=== PATIENT | male | born 1980 | race American Indian/Alaskan Native ===

== ENCOUNTER 2017-12-20 08:01 | Observation (INO) | payer OTHER ==
[2017-12-20] MEDS ORDERED: Sodium Chloride 0.9% 1,000 ML IV ONE (08:23)
[2017-12-20 08:58] LABS: SQUAMOUS EPITHIAL < 1 /hpf (0-5); URINE BILIRUBIN NEGATIVE (NEGATIVE); URINE BLOOD 1+ (NEGATIVE); URINE CLARITY Clear (Clear); URINE COLOR Yellow (YELLOW); URINE GLUCOSE (UA) 1+ mg/dL (Normal); URINE LEUKOCYTE ESTERASE 3+ Leu/uL (Negative); URINE PROTEIN 2+ mg/dL (NEGATIVE)
[2017-12-20 09:00] LABS: BASO # 0.1 K/uL (0.0-0.2); BASO % 1.3 % (0.0-2.0); EOS % 0.5 % (0.0-4.0); LYMPH # 0.4 K/uL (1.0-4.3); LYMPH % 5.3 % (20.0-40.0); MEAN CELL VOLUME 99.2 fL (80.0-94.0); MEAN CORPUSCULAR HEMOGLOBIN 34.3 pg (27.0-31.0); MEAN CORPUSCULAR HGB CONC 34.5 g/dL (33.0-37.0); MONO # 0.8 K/uL (0.0-0.8); MONO % 9.7 % (0.0-10.0); NEUT # 6.4 K/uL (1.8-7.0); NEUT % 83.2 % (50.0-75.0); PLATELET COUNT 222 K/uL (130-400); RBC 3.52 Mil/uL (4.40-5.90); RED CELL DISTRIBUTION WIDTH 13.2 % (11.5-14.5); WHITE BLOOD COUNT 7.7 K/uL (4.8-10.8)
[2017-12-20 09:10] LABS: ALB/GLOB RATIO 1.4 (1.0-2.1); ALBUMIN 4.9 g/dL (3.5-5.0); ALT/SGPT 80 U/L (21-72); AST/SGOT 221 U/L (17-59); BLOOD UREA NITROGEN 11 mg/dL (9-20); CALCIUM 9.6 mg/dl (8.6-10.4); GFR NON-AFRICAN AMERICAN > 60
[2017-12-20 09:15] LABS: BARBITURATES, UR NEGATIVE (NEGATIVE); BENZODIAZEPINES, UR NEGATIVE (NEGATIVE); PHENCYCLIDINE, UR NEGATIVE (NEGATIVE)
[2017-12-20 09:27] LABS: BASOPHIL 1 % (0-2); LYMPHOCYTE 5 % (20-40); MONOCYTE 6 % (0-10); NEUTROPHIL 88 % (50-75); PLATELET ESTIMATE NORMAL (NORMAL); TOTAL CELLS COUNTED 100
--- NOTE | 2017-12-20 09:53 | C.PDOC ---
History Of Present Illness 37-year-old male, PMhx includes Asthma and Seizures (compliant with Keppra), presents to the emergency department with complaints of dizziness. 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 Patient denies any fall or head injury. States he does not remember having a seizure, or any witnesses. Patient notes he had a headache, nausea and dizziness earlier but all have now resolved. He is currently complaining of generalized weakness. No other complaints at this time. Time Seen by Provider: 12/20/17 08:07 Chief Complaint (Nursing): Dizziness/Lightheaded History Per: Patient History/Exam Limitations: no limitations Onset/Duration Of Symptoms: Days Current Symptoms Are (Timing): Still Present Past Medical History Reviewed: Historical Data, Nursing Documentation, Vital Signs Vital Signs: Last Vital Signs Temp 99.1 F 12/20/17 08:10 Pulse 98 H 12/20/17 08:10 Resp 18 12/20/17 08:10 BP 139/88 12/20/17 08:10 Pulse Ox 95 12/20/17 08:10 - Medical History PMH: Asthma, Seizures Family History: States: No Known Family Hx - Social History Hx Alcohol Use: No Hx Substance Use: No - Immunization History Hx Tetanus Toxoid Vaccination: No Hx Influenza Vaccination: No Hx Pneumococcal Vaccination: No Review Of Systems Constitutional: Positive for: Weakness. Negative for: Fever Cardiovascular: Negative for: Chest Pain Respiratory: Negative for: Shortness of Breath Gastrointestinal: Positive for: Nausea Neurological: Positive for: Dizziness. Negative for: Weakness, Numbness Physical Exam - Physical Exam Appears: Non-toxic, No Acute Distress, Other (mildly tremulous) Skin: Normal Color, Warm, Dry, No Rash Head: Atraumatic, Normacephalic Eye(s): bilateral: Normal Inspection, PERRL, EOMI Nose: Normal Lips: Normal Appearing Neck: Normal ROM Cardiovascular: Rhythm Regular, No Murmur Respiratory: Normal Breath Sounds, No Accessory Muscle Use Gastrointestinal/Abdominal: Soft, No Tenderness Extremity: Normal ROM, No Deformity Neurological/Psych: Oriented x3, Normal Speech ED Course And Treatment - Laboratory Results Result Diagrams: 12/20/17 08:48 12/20/17 08:48 ECG: Interpreted By Me, Viewed By Me ECG Rhythm: Sinus Rhythm ECG Interpretation: No Acute Changes Rate From EC O2 Sat by Pulse Oximetry: 95 (RA) Pulse Ox Interpretation: Normal Medical Decision Making Medical Decision Making: On further interview, pt recalls he left work early because he felt dizzy. Pt states he got on a bus, and developed nausea, but does not remember what happened afterward. Disposition Discussed With : Natalie Nguyen Counseled Patient/Family Regarding: Studies Performed, Diagnosis, Need For Followup - Disposition Disposition: HOSPITALIZED Disposition Time: 10:39 Condition: STABLE Forms: [employer] ([place]) - POA Present On Arrival: None - Clinical Impression Clinical Impression: Near syncope - Scribe Statement The provider has reviewed the documentation as recorded by the Scribe (Jessee Garcia) All medical record entries made by the Scribe were at my direction and personally dictated by me. I have reviewed the chart and agree that the record accurately reflects my personal performance of the history, physical exam, medical decision making, and the department course for this patient. I have also personally directed, reviewed, and agree with the discharge instructions and disposition. Decision To Admit - Pt Status Changed To: Hospital Disposition Of: Observation - . Bed Request Type: Regular Admitting Physician: Natalie Nguyen Patient Diagnosis: Near syncope
[2017-12-20 10:02] LABS: OPIATES, UR NEGATIVE (NEGATIVE)
[2017-12-20] MEDS ORDERED: Albuterol 0.083% Inhal Sol (2.5 mg/3 mL) UD INH PRN (11:43)
--- NOTE | 2017-12-20 11:50 | CP.PCM.PN ---
Subjective - Date & Time of Evaluation Date of Evaluation: 12/20/17 Time of Evaluation: 11:30 - Subjective Subjective: PGY2 Progress Note for Dr. Nguyen Patient is a 37 year old male with PMHx of mild intermittent asthma and seizures (diagnosed in 2013) who presents today for a syncopal vs seizure episode. Patient says he was feeling dizzy at work and left early. On the way home on the bus he lost consciousness and is unsure if he had a seizure. His next memory is of the paramedics putting him into the ambulance. Patient did not have loss of bowel or bladder function, but did bite his tongue on the right side and had blood on his shirt. Patient says he has been on Keppra 500mg po BID since he was first diagnosed with seizures and is compliant. Patient says he was rarely having seizures after he started on Keppra, but for the past few years has been having seizures more frequently. Patient says last seizure prior to today's episode was 2 months ago. Patient's asthma is very mild and he says he hasn't used an inhaler in a few years. Currently patient is anxious and shaky. Patient denies any headache or pain. Patient denies any shortness of breath, chest pain, abdominal pain, nausea, vomiting, constipation, or diarrhea. Neurologist in [place], doesn't remember name- sees him multiple times per year Allergies: NKDA PMHx: mild intermittent asthma and seizures (diagnosed in 2013) Psurg: denies Meds: Albuterol (doesn't use), Keppra 500mg po BID Social: smokes cigarettes socially in early 20s and then stopped. alcohol: 1 beer +2 shots per day plus binges on weekends since he was a teenager. longest period of sobriety: 3 weeks about 1 year ago Objective - Vital Signs/Intake and Output Vital Signs (last 24 hours): Temp Pulse Resp BP Pulse Ox 99.1 F 98 H 18 139/88 95 12/20/17 08:10 12/20/17 08:10 12/20/17 08:10 12/20/17 08:10 12/20/17 10:40 - Medications Medications: Current Medications Albuterol Sulfate (Albuterol 0.083% Inhal Graciela (2.5 Mg/3 Ml) Ud) 2.5 mg INH RQ6 PRN PRN Reason: Shortness of Breath Folic Acid (Folic Acid) 1 mg PO DAILY [facility] Folic Acid 1 mg/ Thiamine HCl 100 mg/ Multivitamins/Vitamin C 10 ml/ Dextrose 1,011.2 mls @ 100 mls/hr IV .[id number] [facility] Levetiracetam (Keppra) 500 mg PO BID [facility] Lorazepam (Ativan) 1 mg IVP Q4H PRN PRN Reason: Seizure activity Multivitamins (Hexavitamin) 1 tab PO DAILY [facility] Thiamine HCl (Vitamin B1 Tab) 100 mg PO DAILY [facility] - Labs Labs: 12/20/17 08:48 12/20/17 08:48 - Constitutional Appears: Non-toxic, No Acute Distress - Head Exam Head Exam: ATRAUMATIC, NORMAL INSPECTION, NORMOCEPHALIC - Eye Exam Eye Exam: EOMI, Normal appearance - ENT Exam ENT Exam: Mucous Membranes Moist Additional comments: right side of tongue with laceration - Neck Exam Neck Exam: Full ROM - Respiratory Exam Respiratory Exam: Clear to Ausculation Bilateral, NORMAL BREATHING PATTERN - Cardiovascular Exam Cardiovascular Exam: REGULAR RHYTHM, RRR, +S1, +S2 - GI/Abdominal Exam GI & Abdominal Exam: Soft, Normal Bowel Sounds. absent: Tenderness - Extremities Exam Extremities Exam: Normal Inspection - Neurological Exam Neurological Exam: Alert, Awake, Oriented x3 - Psychiatric Exam Psychiatric exam: Anxious, Normal Affect - Skin Skin Exam: Dry, Rash, Warm Additional comments: silver scaly plaques on arms bilaterally and knees bilaterally Assessment and Plan - Assessment and Plan (Free Text) Assessment: Seizure vs Syncopal Episode Neuro, Dr. Jackson consulted, help appreciated CT head (12/20): no acute intracranial hemorrhage. No evidence of large acute infarct. f/u MRI, EEG Seizure precautions, aspiration precautions Ativan 1mg ivp prn loading dose of Keppra 1g given Keppra 750 mg po BID (increased from 500mg) Alcohol Use Disorder fall precautions, seizure precautions, aspiration precautions CIWA protocol Ativan 1mg ivp prn Psoriasis vs Eczema apply Hydrocortisone 1% topical cream to affected areas BID will need further workup outpatient Prophylaxis SCDs Discussed with Dr. Nguyen Management as per Dr. Nguyen
[2017-12-20] MEDS ORDERED: Folic Acid 1 MG, Thiamine 100 MG, Multivitamin (MVI) 10 ML in Dextrose 5% In Water 1,00... IV ONE (12:30)
[2017-12-20] MEDS ORDERED: Sodium Chloride 0.9% 1,000 ML ONE (13:25)
[2017-12-20] MEDS ORDERED: Alum-Mag Hydrox-Simethicone Susp (30 mL) ONE (13:25)
--- NOTE | 2017-12-20 13:57 | CP.PCM.CON ---
History of Present Illness - History of Present Illness History of Present Illness: 37-year-old male, PMhx includes Asthma and Seizures (compliant with Keppra), presents to the emergency department with complaints of dizziness. Patient states he works at [employer], and while there he developed dizziness, and felt like he was going to pass out. Patient denies any fall or head injury. States he does not remember having a seizure, or any witnesses. Patient notes he had a headache, nausea and dizziness earlier but all have now resolved. He is currently complaining of generalized weakness. No other complaints at this time. ROS: no diarrhea, no vomiting, no aphasia PMH/PSH: asthma, epilepsy FH/SH: as per chart. All: nkda. On exam: AAOX3. PERRL. cn 2-12 normal. EOMI. Motor: strength: 5/5 ul and ll bl toes. Sensory: intact ft, pin, position sense Gait: normal. +2 dtr ul and ll bl. Toes downgoing. No clonus. Past Patient History - Infectious Disease Hx of Infectious Diseases: None - Past Social History Smoking Status: Never Smoked - PULMONARY Hx Asthma: Yes - NEUROLOGICAL Hx Seizures: Yes - PSYCHIATRIC Hx Substance Use: No - SURGICAL HISTORY Hx Surgeries: No - ANESTHESIA Hx Anesthesia: No Meds Allergies/Adverse Reactions: Allergies Allergy/AdvReac Type Severity Reaction Status Date / Time No Known Allergies Allergy Verified 12/20/17 08:14 - Medications Medications: Current Medications Albuterol Sulfate (Albuterol 0.083% Inhal Graciela (2.5 Mg/3 Ml) Ud) 2.5 mg INH RQ6 PRN PRN Reason: Shortness of Breath Folic Acid (Folic Acid) 1 mg PO DAILY [facility] Hydrocortisone (Cortizone 1% Oint) 1 gm TOP BID [facility] Folic Acid 1 mg/ Thiamine HCl 100 mg/ Multivitamins/Vitamin C 10 ml/ Dextrose 1,011.2 mls @ 100 mls/hr IV ONCE ONE Stop: 12/20/17 22:36 Last Admin: 12/20/17 13:13 Dose: 100 mls/hr Levetiracetam (Keppra) 500 mg PO BID [facility] Lorazepam (Ativan) 1 mg IVP Q4H PRN PRN Reason: Seizure activity Multivitamins (Hexavitamin) 1 tab PO DAILY [facility] Thiamine HCl (Vitamin B1 Tab) 100 mg PO DAILY [facility] Results - Vital Signs Recent Vital Signs: Last Vital Signs Temp 99.9 F H 12/20/17 12:39 Pulse 78 12/20/17 12:39 Resp 18 12/20/17 13:14 BP 144/90 12/20/17 12:39 Pulse Ox 97 12/20/17 12:39 - Labs Result Diagrams: 12/21/17 07:21 12/21/17 07:21 Labs: Laboratory Results - last 24 hr 12/20/17 12/20/17 12/20/17 08:10 08:48 08:48 WBC 7.7 RBC 3.52 L Hgb 12.0 Hct 34.9 L MCV 99.2 H MCH 34.3 H MCHC 34.5 RDW 13.2 Plt Count 222 MPV 7.0 L Neut % (Auto) 83.2 H Lymph % (Auto) 5.3 L [place] % (Auto) 9.7 Eos % (Auto) 0.5 Baso % (Auto) 1.3 Neut # (Auto) 6.4 Lymph # (Auto) 0.4 L [place] # (Auto) 0.8 Eos # (Auto) 0.0 Baso # (Auto) 0.1 Neutrophils % (Manual) 88 H Lymphocytes % (Manual) 5 L Monocytes % (Manual) 6 Basophils % (Manual) 1 Platelet Estimate Normal Sodium Potassium Chloride Carbon Dioxide Anion Gap BUN Creatinine Est GFR ( Amer) Est GFR (Non-Af Amer) POC Glucose (mg/dL) 180 H Random Glucose Calcium Total Bilirubin AST ALT Alkaline Phosphatase Total Protein Albumin Globulin Albumin/Globulin Ratio Urine Color Yellow Urine Clarity Clear Urine pH 6.0 Ur Specific [place] 1.016 Urine Protein 2+ H Urine Glucose (UA) 1+ H Urine Ketones Trace Urine Blood 1+ H Urine Nitrate Negative Urine Bilirubin Negative Urine Urobilinogen 2.0 Ur Leukocyte Esterase 3+ H Urine WBC (Auto) 18 H Urine RBC (Auto) 4 H Ur Squamous Epith Cells < 1 Urine Opiates Screen Urine Methadone Screen Ur Barbiturates Screen Ur Phencyclidine Scrn Ur Amphetamines Screen U Benzodiazepines Scrn U Oth Cocaine Metabols U Cannabinoids Screen Alcohol, Quantitative 12/20/17 12/20/17 08:48 08:48 WBC RBC Hgb Hct MCV MCH MCHC RDW Plt Count MPV Neut % (Auto) Lymph % (Auto) [place] % (Auto) Eos % (Auto) Baso % (Auto) Neut # (Auto) Lymph # (Auto) [place] # (Auto) Eos # (Auto) Baso # (Auto) Neutrophils % (Manual) Lymphocytes % (Manual) Monocytes % (Manual) Basophils % (Manual) Platelet Estimate Sodium 136 Potassium 4.0 Chloride 96 L Carbon Dioxide 23 Anion Gap 21 H BUN 11 Creatinine 0.6 L Est GFR ( Amer) > 60 Est GFR (Non-Af Amer) > 60 POC Glucose (mg/dL) Random Glucose 155 H Calcium 9.6 Total Bilirubin 1.3 AST 221 H ALT 80 H Alkaline Phosphatase 91 Total Protein 8.4 H Albumin 4.9 Globulin 3.5 Albumin/Globulin Ratio 1.4 Urine Color Urine Clarity Urine pH Ur Specific [place] Urine Protein Urine Glucose (UA) Urine Ketones Urine Blood Urine Nitrate Urine Bilirubin Urine Urobilinogen Ur Leukocyte Esterase Urine WBC (Auto) Urine RBC (Auto) Ur Squamous Epith Cells Urine Opiates Screen Negative Urine Methadone Screen Negative Ur Barbiturates Screen Negative Ur Phencyclidine Scrn Negative Ur Amphetamines Screen Negative U Benzodiazepines Scrn Negative U Oth Cocaine Metabols Negative U Cannabinoids Screen Negative Alcohol, Quantitative < 10 Assessment & Plan - Assessment and Plan (Free Text) Assessment: CT head: appears normal. 37 yr old male with diziness who most likely did not have a stroke, and has a history of epilepsy. We will continue keppra and obtain eeg and mri brain. plan; 1. EEG 2. MRi Brain with out madeleine THank you Dr. quintanilla neurology
--- NOTE | 2017-12-20 14:02 | CT ---
Date of service: 12/20/2017 PROCEDURE: CT HEAD WITHOUT CONTRAST. HISTORY: s/p seizure/ syncopal episode COMPARISON: No prior study available comparison. The TECHNIQUE: Axial computed tomography images were obtained through the head/brain without intravenous contrast. Radiation dose: Total exam DLP = 0.7 0.36. mGy-cm. This CT exam was performed using one or more of the following dose reduction techniques: Automated exposure control, adjustment of the mA and/or kV according to patient size, and/or use of iterative reconstruction technique. FINDINGS: HEMORRHAGE: No acute parenchymal, subarachnoid or extra-axial hemorrhage. BRAIN: No evidence of large acute infarct. Note that the possibility of a small hyperacute infarct cannot be excluded. There is mild generalized volume loss including posterior fossa structures VENTRICLES: No obstructive hydrocephalus. CALVARIUM: Unremarkable. PARANASAL SINUSES: There is near complete opacification visualized superior margin of the left maxillary antrum MASTOID AIR CELLS: Unremarkable as visualized. No inflammatory changes. OTHER FINDINGS: None. IMPRESSION: No acute intracranial hemorrhage.. No evidence of large acute infarct.
[2017-12-21 00:17] VITALS: O2SAT 98
--- NOTE | 2017-12-21 07:06 | HP ---
HISTORY OF PRESENT ILLNESS: A 37-year-old man, admitted to the hospital with chief complaint of passing out in a bus. The patient history of seizure. 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 The patient's . He was confused. The patient admitted drinking alcohol in the weekends. The patient is on Keppra twice a day. Follows up with Neurology, does not know the name. PHYSICAL EXAMINATION: GENERAL: The patient is awake, alert, and oriented. VITAL SIGNS: Temperature 98, pulse 90. HEENT: Within normal limits. NECK: Supple. CHEST: Symmetrical. HEART: Regular. ABDOMEN: Soft. EXTREMITIES: No edema. ASSESSMENT AND PLAN: The patient suffers from seizure, possible alcohol withdrawal. get neuro checks. Seizures precaution, MRI of the brain. Natalie Nguyen MD
[2017-12-21 07:35] LABS: BASO # 0.1 K/uL (0.0-0.2); BASO % 1.3 % (0.0-2.0); EOS # 0.2 K/uL (0.0-0.7); EOS % 3.2 % (0.0-4.0); HEMOGLOBIN 13.6 g/dL (12.0-18.0); LYMPH # 0.5 K/uL (1.0-4.3); LYMPH % 9.6 % (20.0-40.0); MEAN CELL VOLUME 98.4 fL (80.0-94.0); MEAN CORPUSCULAR HEMOGLOBIN 34.6 pg (27.0-31.0); MEAN CORPUSCULAR HGB CONC 35.2 g/dL (33.0-37.0); MEAN PLATELET VOLUME 7.3 fL (7.2-11.7); MONO # 0.8 K/uL (0.0-0.8); MONO % 14.5 % (0.0-10.0); NEUT % 71.4 % (50.0-75.0); PLATELET COUNT 228 K/uL (130-400); RBC 3.94 Mil/uL (4.40-5.90); RED CELL DISTRIBUTION WIDTH 12.9 % (11.5-14.5); WHITE BLOOD COUNT 5.6 K/uL (4.8-10.8)
--- NOTE | 2017-12-21 07:46 | CP.PCM.PN ---
Subjective - Date & Time of Evaluation Date of Evaluation: 12/21/17 Time of Evaluation: 09:10 - Subjective Subjective: PGY 3 Med Note- Dr. Nguyen's service Patient seen and examined in no acute distress. Patient's history of present illness reviewed . Patient states that he felt dizzy while at work and almost passed out. Patient states that he has had seizures before. He states that since being diagnosed with seizures, he has been taking medication to prevent this. He states that he did not miss any doses. Patient states that he has not been sleeping at all. 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 Patient states that he has not been able to sleep during the day. Patient denied any chest pain, nausea, vomiting, weakness, difference in speech or sensation. Objective - Vital Signs/Intake and Output Vital Signs (last 24 hours): Temp Pulse Resp BP Pulse Ox 97.8 F 71 16 131/83 98 12/21/17 00:01 12/21/17 00:01 12/21/17 00:01 12/21/17 00:01 12/21/17 00:01 Intake and Output: 12/21/17 12/21/17 06:59 18:59 Intake Total 1500 Output Total 1450 Balance 50 - Medications Medications: Current Medications Albuterol Sulfate (Albuterol 0.083% Inhal Graciela (2.5 Mg/3 Ml) Ud) 2.5 mg INH RQ6 PRN PRN Reason: Shortness of Breath Folic Acid (Folic Acid) 1 mg PO DAILY [facility] Hydrocortisone (Cortizone 1% Oint) 1 gm TOP BID [facility] Last Admin: 12/20/17 19:05 Dose: 1 applic Levetiracetam (Keppra) 750 mg PO BID [facility] Last Admin: 12/20/17 21:36 Dose: 750 mg Lorazepam (Ativan) 1 mg IVP Q4H PRN PRN Reason: Seizure activity Multivitamins (Hexavitamin) 1 tab PO DAILY [facility] Pneumococcal Polyvalent Vaccine (Pneumovax 23 Vaccine) 0.5 ml IM .ONCE ONE Stop: 12/22/17 10:01 Thiamine HCl (Vitamin B1 Tab) 100 mg PO DAILY [facility] - Labs Labs: 12/21/17 07:21 12/20/17 08:48 - Constitutional Appears: Non-toxic, No Acute Distress - Head Exam Head Exam: ATRAUMATIC, NORMAL INSPECTION - Eye Exam Eye Exam: EOMI Pupil Exam: NORMAL ACCOMODATION - ENT Exam ENT Exam: Mucous Membranes Moist - Neck Exam Neck Exam: Full ROM - Respiratory Exam Respiratory Exam: NORMAL BREATHING PATTERN - Cardiovascular Exam Cardiovascular Exam: +S1, +S2 - GI/Abdominal Exam GI & Abdominal Exam: Soft, Normal Bowel Sounds - Extremities Exam Extremities Exam: Full ROM, Normal Capillary Refill, Normal Inspection - Back Exam Back Exam: Full ROM - Neurological Exam Neurological Exam: Alert, Awake, Oriented x3 Neuro motor strength exam: Left Upper Extremity: 5, Right Upper Extremity: 5, Left Lower Extremity: 5, Right Lower Extremity: 5 Additional comments: sensation and motor strength intact 5/5 in UE and LE, finger to nose test i ntact, no pronator drift - Psychiatric Exam Psychiatric exam: Normal Affect, Normal Mood - Skin Skin Exam: Dry, Rash (hypopigmented flesh/pink colored plaques on forearms and legs), Warm. absent: Erythema Assessment and Plan - Assessment and Plan (Free Text) Assessment: Seizure vs Syncopal Episode Neuro, Dr. Jackson consulted, help appreciated CT head (12/20): no acute intracranial hemorrhage. No evidence of large acute infarct. f/u MRI, EEG Seizure precautions, aspiration precautions Ativan 1mg ivp prn Keppra 750 mg po BID Electrolyte Imbalance Likely secondary to alcohol use Repleted Monitor Alcohol Use Disorder fall precautions, seizure precautions, aspiration precautions CIWA protocol Ativan 1mg ivp prn Folic acid 1 mg PO daily Thiamine 100 mg PO daily Counseling warranted Rash Apply Hydrocortisone 1% topical cream to affected areas BID will need further workup outpatient Prophylaxis SCDs GI prophylaxis not currently indicated DC Instructions Patient is medically stable for discharge home. Patient to follow up with primary medical doctor within one week. Patient to follow up with Neurologist, Dr. Jackson within one week for follow up care. Patient will be given three new medications: Keppra 750 mg PO , take this dosage by mouth twice a day; Thiamine vitamin 100 mg, once a day and Folic acid vitamin once a day. If symptoms return, go to the emergency room. Instructions explained to patient who is aware. Please take care and feel better. Discussed with attending. All Management and planning as per Dr. Nguyen
[2017-12-21 08:08] LABS: ALB/GLOB RATIO 1.3 (1.0-2.1); ALBUMIN 4.6 g/dL (3.5-5.0); ALT/SGPT 72 U/L (21-72); AST/SGOT 231 U/L (17-59); BLOOD UREA NITROGEN 4 mg/dL (9-20); CALCIUM 9.8 mg/dl (8.6-10.4); GFR NON-AFRICAN AMERICAN > 60
[2017-12-21 08:14] VITALS: BP 129/69; RESP 20
[2017-12-21 08:41] LABS: EOSINOPHIL 4 % (0-4); LYMPHOCYTE 4 % (20-40); MONOCYTE 5 % (0-10); NEUTROPHIL 87 % (50-75); PLATELET ESTIMATE NORMAL (NORMAL); TOTAL CELLS COUNTED 100
[2017-12-21] MEDS ORDERED: Potassium Chloride 20 mEq ER Tab PO ONE (09:30)
[2017-12-21] MEDS ORDERED: Multiple Vitamins Tab PO SCH (10:00)
--- NOTE | 2017-12-21 10:34 | CP.PCM.PN ---
Subjective - Date & Time of Evaluation Date of Evaluation: 12/21/17 Time of Evaluation: 10:33 - Subjective Subjective: Neurology Progress Note: Dr. Jackson's Service Patient seen and examined at bedside. Per nursing no acute events occurred overnight. Patient reports an improvement dizziness during todays visit. Patient denies any chest pain, shortness of breath, fevers, chills, or any other complaints. Objective - Vital Signs/Intake and Output Vital Signs (last 24 hours): Temp Pulse Resp BP Pulse Ox 98.3 F 70 20 129/69 98 12/21/17 10:14 12/21/17 08:13 12/21/17 08:13 12/21/17 08:13 12/21/17 08:13 Intake and Output: 12/21/17 12/21/17 06:59 18:59 Intake Total 1500 Output Total 1450 Balance 50 - Medications Medications: Current Medications Albuterol Sulfate (Albuterol 0.083% Inhal Graciela (2.5 Mg/3 Ml) Ud) 2.5 mg INH RQ6 PRN PRN Reason: Shortness of Breath Folic Acid (Folic Acid) 1 mg PO DAILY [facility] Last Admin: 12/21/17 09:52 Dose: 1 mg Hydrocortisone (Cortizone 1% Oint) 1 gm TOP BID [facility] Last Admin: 12/20/17 19:05 Dose: 1 applic Levetiracetam (Keppra) 750 mg PO BID [facility] Last Admin: 12/21/17 09:54 Dose: 750 mg Lorazepam (Ativan) 1 mg IVP Q4H PRN PRN Reason: Seizure activity Multivitamins (Hexavitamin) 1 tab PO DAILY [facility] Last Admin: 12/21/17 09:52 Dose: 1 tab Pneumococcal Polyvalent Vaccine (Pneumovax 23 Vaccine) 0.5 ml IM .ONCE ONE Stop: 12/22/17 10:01 Thiamine HCl (Vitamin B1 Tab) 100 mg PO DAILY [facility] Last Admin: 12/21/17 09:51 Dose: 100 mg - Labs Labs: 12/21/17 07:21 12/21/17 07:21 - Head Exam Head Exam: NORMAL INSPECTION - Eye Exam Eye Exam: EOMI, Normal appearance, PERRL Pupil Exam: NORMAL ACCOMODATION - ENT Exam ENT Exam: Mucous Membranes Moist, Normal Oropharynx - Respiratory Exam Respiratory Exam: Clear to Ausculation Bilateral, NORMAL BREATHING PATTERN - Cardiovascular Exam Cardiovascular Exam: REGULAR RHYTHM, +S1, +S2 - GI/Abdominal Exam GI & Abdominal Exam: Soft, Normal Bowel Sounds. absent: Hyperactive Bowel Sounds - Extremities Exam Extremities Exam: Full ROM, Pedal Edema. absent: Joint Swelling - Neurological Exam Neurological Exam: Alert, Awake, Oriented x3 - Psychiatric Exam Psychiatric exam: Normal Affect, Normal Mood - Skin Skin Exam: Dry, Intact Assessment and Plan - Assessment and Plan (Free Text) Assessment: 37 yr old male witha past medical history of seizures who reports diziness and who was admitted for a questionable seizure episode occurring on the bus. Plan: 1.?Seizures Last reported seizure was September 2017. Patient reports going to hospital for treatment. Patient doesn't follow with Neurologist on outpatient basis. Medications: Keppra 750mg BID PO Advised patient to refrain from alcohol use as it can be contributing to seizure activity. Patient will follow up with Dr. Jackson as an outpatient for video EEG. Dispo:Patient stable for discharge today. Plan discussed with Dr. Manuel Green, PGY-2
--- NOTE | 2017-12-21 11:45 | CARD ---
APPROVED REPORT Date of service: 12/20/2017 EKG Measurement Heart [id number] <Conclusion> Normal sinus rhythm Normal ECG
--- NOTE | 2017-12-21 13:58 | MRI ---
Date of service: 12/20/2017 PROCEDURE: MRI BRAIN WITHOUT CONTRAST HISTORY: stroke COMPARISON: Comparison made with prior CT scan earlier same day. TECHNIQUE: Multiplanar, multisequence MR images of the brain were obtained without intravenous contrast enhancement. FINDINGS: HEMORRHAGE: No acute parenchymal, subarachnoid or extra-axial hemorrhage. No evidence of hemosiderin deposition is identified on gradient echo weighted sequence. DWI: No evidence of an acute or early subacute infarction seen on diffusion imaging.. BRAIN PARENCHYMA: No focal areas of abnormal signal seen within the substance of the brain. No evidence of any significant chronic ischemic changes. No obvious parenchymal nor extra-axial mass or collection. There appears to be mild cerebellar volume loss with prominent subarachnoid spaces surrounding cerebellar folia. Clinical correlation recommended. VENTRICLES: No obstructive the hydrocephalus. CRANIUM: Unremarkable. ORBITS: Orbits and contents unremarkable. PARANASAL SINUSES/MASTOIDS: There is opacification both maxillary antra. VASCULAR SYSTEM: Skull base flow voids intact. OTHER FINDINGS: None. IMPRESSION: No evidence of acute intracranial hemorrhage or infarct. There appears to be mild cerebellar volume loss.
[2017-12-21] MEDS ORDERED: Magnesium Sulfate 1 gm in D5W 1 GM/100 ML BAG IVPB ONE (14:00)
[2017-12-21 15:59] VITALS: PULSE 73; TEMP 98
[2017-12-21] MEDS ORDERED: Influenza Vaccine 60 MCG/0.5 ML SYR (3 yr & up) IM ONE (16:21)
[2017-12-21] MEDS ORDERED: Pneumococcal 23-Valent Vaccine IM ONE (17:00)
[2017-12-22] MEDS ORDERED: Pneumococcal 23-Valent Vaccine IM ONE (10:00)
== END 2017-12-21 17:08 | disposition home or self-care (01) ==
LOC: C.ER 08:01 → C.9E 10:41 → C.3T 12:24
PROVIDERS: ADMIT Internal Medicine Pulmonary Disease; ATTEND Internal Medicine Pulmonary Disease
DX: G40.909 Epilepsy, unspecified, not intractable, without status epilepticus (principal); J45.909 Unspecified asthma, uncomplicated
CPT/HCPCS: 36415; 70450; 70551; 80053; 80177; 80320; 80324; 80345; 80346; 80349; 80353; 80358; 80361; 81001; 82948; 83735; 83992; 84100; 85025; 93005; 95812; 96360; 99285; G0378; J3411; J3475; J7030; J7070